=== PATIENT | female | born 1990 | race Caucasian/White ===

== ENCOUNTER 2018-08-01 05:38 | Day surgery (SDC) | payer OTHER ==
[2018-08-01] MEDS ORDERED: GLYCOPYRROLATE 0.4 MG INJ (07:00)
[2018-08-01] MEDS ORDERED: CEFAZOLIN 1 GM INJ (07:00)
[2018-08-01] MEDS ORDERED: MIDAZOLAM 1 MG/ML 2 ML INJ (07:23)
[2018-08-01] MEDS ORDERED: FAMOTIDINE 20 MG INJ (07:23)
[2018-08-01] MEDS ORDERED: PROPOFOL 40 ML (07:23)
[2018-08-01] MEDS ORDERED: FENTAnyl 50 MCG/ML VIAL (07:29)
[2018-08-01] MEDS ORDERED: LIDOCAINE 2% (SDV) 5 ML INJ (07:29)
[2018-08-01] MEDS ORDERED: morphine (1 MG/ML) 10ML SYRINGE IV ×2 (07:30)
[2018-08-01] MEDS ORDERED: LABETALOL HCL 20MG INJ IV (07:30)
[2018-08-01] MEDS ORDERED: FENTAnyl 50 MCG/ML VIAL IV (07:30)
[2018-08-01] MEDS ORDERED: HYDROmorphONE 1 MG/5 ML IV SYRINGE IV ×2 (07:30)
[2018-08-01] MEDS ORDERED: ALBUTEROL 0.083% (NEB) 2.5 MG/3 ML AMP HHN (07:30)
[2018-08-01] MEDS ORDERED: DIPHENHYDRAMINE 50 MG INJ IV (07:30)
[2018-08-01] MEDS ORDERED: DEXAMETHASONE 4 MG/ML 5 ML INJ (07:30)
[2018-08-01] MEDS ORDERED: OXYCODONE/ACETAMINOPHEN (5/325) TAB PO ×2 (07:30)
[2018-08-01] MEDS ORDERED: ONDANSETRON 4 MG INJ (07:30)
[2018-08-01] MEDS ORDERED: LIDOCAINE 2% (MDV) 20 ML INJ (07:57)
[2018-08-01] MEDS: POLYMYXIN/BACITRACIN 1L IRRIG (08:26)
[2018-08-01] MEDS: BUPIVACAINE 0.5% (SDV) 30 ML INJ (08:26)
[2018-08-01] MEDS: ONDANSETRON 4 MG INJ IV (09:34)
[2018-08-01] MEDS: FENTAnyl 50 MCG/ML VIAL IV (09:34)
== END 2018-08-01 11:10 | disposition home or self-care (01) ==
LOC: SDS 05:38
DX: M21.621 Bunionette of right foot (principal); J45.909 Unspecified asthma, uncomplicated; E66.9 Obesity, unspecified; Z68.42 Body mass index [BMI] 45.0-49.9, adult
CPT/HCPCS: 28110; 73630; 88304; 88311